=== PATIENT | female | born 1955 | race Two or more races ===

== ENCOUNTER 2025-01-21 06:41 | Day surgery (SDC) | payer OTHER ==
[2025-01-21] VITALS (18 sets, daily range): BP systolic 153–183; BP diastolic 74–91; PULSE 0–75; RESP 12–20; TEMP 97.8; O2SAT 91–100
[~2025-01-21] VITALS: Ht 160 cm; Wt 79.5 kg
[2025-01-21] MEDS: DOCUMENT DATE & TIME OF BETA-BLOCKER PO ONE (05:00)
[2025-01-21] MEDS: ceFAZolin 2gm/dext,iso 50mL 50 ML IV ONE (05:30)
[~2025-01-21 06:41] MED LIST: ATOR10TA70 PO; LEVO100C5 PO; MAGN400C PO; METO50TA16 PO; MULT-1085 PO; PANT-47 PO
[2025-01-21] MEDS: ringers solution, lacted 1,000 ML IV SCH (07:41)
--- NOTE | 2025-01-21 07:55 | ELECTROCARDIOGRAPH REPORT ---
[facility] Test Date: 2025-01-21 Test Time: 07:53:36 Pat Name: CORTNEY SHAW Department: [facility] Patient ID: [facility]-[id number] Room: Gender: F Civil Rights Investigator: fredi : 1955 Requested By: TANESHA VALE Order Number: [id number] Reading MD: Dr. ALVINO Ruiz Measurements Intervals Douglas Rate: 53 P: 54 MO: 174 QRS: -3 QRSD: 100 T: 14 QT: 452 QTc: 425 Interpretive Statements Sinus bradycardia Low voltage, precordial leads Abnormal R-wave progression, early transition Electronically Signed On 01-21-2025 19:24:[address] ALVINO Ruiz Please click the below link to view image of tracing.
[2025-01-21 07:57] LABS: CREATININE 0.93 MG/DL (0.40-0.90); PRE OP ALT 18 U/L (30-65); PRE OP ANION GAP 8 (8-16); PRE OP AST 17 U/L (10-37); PRE OP BILIRUB, TOTAL 0.8 MG/DL (0.0-1.0); PRE OP GLUCOSE 127 MG/DL (70-104); PRE OP SODIUM 138 MMOL/L (135-145); TOTAL CARBON DIOXIDE 25.3 MMOL/L (24-32); eCRCL 51 ML/MIN; eGFR 60 ML/MIN
[2025-01-21] MEDS ORDERED: BUPIVAcaine 2.5mg/ml inj 50ml vial (contains preservative) ONE (07:57)
[2025-01-21 08:00] LABS: PRE OP POTASSIUM 3.2 MMOL/L (3.4-5.1)
[2025-01-21 08:53] LABS: MEAN PLATELET VOLUME 11.1 FL (7.4-10.4); RED CELL DISTRIBUTION WIDTH 13.9 % (11.5-14.5)
[2025-01-21] MEDS ORDERED: midazolam 1 mg/ML 2ml injection ONE (10:36)
[2025-01-21] MEDS ORDERED: fentaNYL/PF 50MCG/1 ML 2ML syringe ONE (10:36)
[2025-01-21] MEDS ORDERED: ondansetron/PF 4mg/2ml inj ONE (10:45)
[2025-01-21] MEDS ORDERED: propofol inj 20 ML IV ONE (10:45)
[2025-01-21] MEDS ORDERED: rocuronium 10mg/ml inj IV ONE (10:45)
[2025-01-21] MEDS ORDERED: glycopyrrolate 0.2mg/ml inj ONE (11:00)
[2025-01-21] MEDS ORDERED: LIDOcaine 1%/PF 5ML 10 MG/ML VIAL ONE (11:00)
[2025-01-21] MEDS ORDERED: dexamethasone sod phosphate 4mg/ml inj. ONE (11:00)
[2025-01-21] MEDS: BUPIVAcaine/PF 2.5 mg/ml (0.25%) 30ml vial IJ ONE (11:15)
[2025-01-21] MEDS ORDERED: acetaminophen 1,000mg/100ml IV 100 ML IV ONE (11:16)
--- NOTE | 2025-01-21 11:31 | OPERATIVE REPORT ---
Operative Report Providers to CC ~ Date of Procedure: Jan 21, 2025 Pre-Operative Diagnosis: gallstone pancreatitis Post-Operative Diagnosis SAME as PRE-Op Procedure Performed sunil rodriguez Surgeon: jeanmarie moura Anesthesiologist: Thor Seay Type of Anesthesia: General Findings: distended gb Estimated Blood Loss: min Specimen Removed: ROCHELLE Ramirez MD Jan 21, 2025 11:31
[2025-01-21] MEDS ORDERED: morphine 4 MG/ML inj SYRINge IV PRN (11:45)
[2025-01-21] MEDS ORDERED: ringers solution, lacted 1,000 ML IV SCH (11:45)
[2025-01-21] MEDS ORDERED: meperidine/PF 25mg/ml syringe IV PRN ×3 (11:45)
[2025-01-21] MEDS ORDERED: ondansetron/PF 4mg/2ml inj IV PRN (11:45)
[2025-01-21] MEDS ORDERED: labetalol 20mg/4ml (5mg/ml) syringe IV PRN (11:45)
[2025-01-21] MEDS: morphine 4 MG/ML inj SYRINge ONE (11:50)
[2025-01-21] MEDS: enalaprilat 1.25mg/ml 2ml vial IV PRN (12:01)
--- NOTE | 2025-01-21 13:52 | OPERATIVE REPORT ---
DATE OF SURGERY: 01/21/2025 DICTATING PHYSICIAN: Maxwell Ibarra MD PREOPERATIVE DIAGNOSIS: Gallstone pancreatitis. POSTOPERATIVE DIAGNOSIS: Gallstone pancreatitis. PROCEDURE PERFORMED: Robotic cholecystectomy. SURGEON: Maxwell Ibarra MD HAT FORMING MACHINE FEEDER: Nilda. ANESTHESIA: General/Dr. Seay DRAINS: None. INDICATIONS FOR OPERATION: A 69-year-old female, seen gallstone pancreatitis, essentially left, seen in followup. Recommended for cholecystectomy, seen in the office, surgery scheduled. INTRAOPERATIVE FINDINGS: Distended gallbladder. DESCRIPTION OF PROCEDURE: The patient was placed supine on the operating table. After induction of general anesthesia and placement of endotracheal tube, the abdomen was prepped and draped. A subumbilical incision was then made and Teresa port placed using an open technique and pneumoperitoneum was begun by insufflation of CO2. Additional ports were placed in the left lower quadrant and right lateral abdomen. Ports were placed under laparoscopic vision. Robot was then brought to the field. Camera port docked. Camera placed, camera targeted. Additional ports were then docked and instruments placed. Abdomen was then explored. Gallbladder fundus was grasped and retracted cephalad. Cystic duct was identified, isolated, ligated, clipped and divided the cystic artery. The gallbladder was mobilized out of the gallbladder fossa. Hemostasis was found to be adequate. Robotic instruments were removed from the field. Gallbladder was placed in Endobag using a laparoscope. The abdomen was copiously irrigated with large amount of antibiotic-containing solution. Ports were removed under laparoscopic vision with no evidence of active bleeding. Final port and camera withdrawn. Gallbladder removed using an Endobag. Wounds were closed in layers after pneumoperitoneum was evacuated. Skin was closed with subcuticular stitch. Dressings applied and the patient was transferred to recovery in stable condition. Maxwell Ibarra MD TID: [id number] RECEIPT: [id number] LUIS/ALTON/CHERYL
[2025-01-21] MEDS: HYDROcodone/acetaminophen 5mg/325mg tablet PO ONE (14:06)
--- NOTE | 2025-01-23 18:37 | PATHOLOGY REPORT ---
[facility] [address] [place] [address] SURGICAL PATHOLOGY REPORT CaseNumber: [id number] Surgeon:GUERO Bhatt CLINICAL INFORMATION CLINICAL INFORMATION: Not provided. DIAGNOSIS DIAGNOSIS: GALLBLADDER; ROBOTIC-ASSISTED LAPAROSCOPIC KARRI - MILD TO MODERATE CHRONIC CHOLECYSTITIS. - CHOLELITHIASIS. MICROSCOPIC DESCRIPTION MICROSCOPIC DESCRIPTION: A single slide of the submitted gallbladder is reviewed. Present is mild to moderate chronic cholecystitis. The lining gallbladder mucosa is intact without dysplastic features. It invaginates into the underlying muscularis propria. Within the lamina propria, there is a slight increased number of lymphocytes and plasma cells. The gallbladder wall is thickened due to an increased content of fibrous tissue. There are scattered lymphocytes throughout. There are no features of malignancy. (st) GROSS DESCRIPTION GROSS DESCRIPTION: Received in a container of formalin labeled with the patient's name, number, and "Gallbladder" is a disrupted gallbladder which measures 6.5 cm long by 3 cm in diameter. The serosa is smooth, shiny, and bile- stained. The surgical bed is unremarkable. Sectioning reveals a small amount of viscous dark green bile and a 1 cm aggregate of irregularly shaped black stone. The mucosa is intact and without focal lesion. The wall of the gallbladder measures up to 1 5 cm thick. Professor Of Family Medicine sections of the neck and wall of the gallbladder are submitted as A1.The time at which the specimen was removed was 1115. The time at which the specimen was placed in formalin was 1130. Electronically signed by: Ysabel Fountain M.D. 01/23/2025 6:01:00 PM
== END 2025-01-21 14:38 | disposition home or self-care (01) ==
LOC: PAS 06:41
PROVIDERS: ATTEND Surgery
DX: K85.10 Biliary acute pancreatitis without necrosis or infection (principal); K80.10 Calculus of gallbladder with chronic cholecystitis without obstruction; R94.31 Abnormal electrocardiogram [ECG] [EKG]; I10 Essential (primary) hypertension; K21.9 Gastro-esophageal reflux disease without esophagitis; Z79.899 Other long term (current) drug therapy; Z98.891 History of uterine scar from previous surgery; Z98.890 Other specified postprocedural states; Z88.6 Allergy status to analgesic agent
CPT/HCPCS: 36415; 47562; 80053; 85025; 93005; A4215; A4618; A7000; J0131; J1100; J2250; J2270; J2405; J2704; J2710; J3010; J3490; J7030; J7120; S2900; Z7506; Z7508; Z7512; Z7610